=== PATIENT | male | born 1955 | race Caucasian/White ===

== ENCOUNTER 2022-06-05 16:19 | Emergency (ER) | payer MEDICARE ==
[~2022-06-05] VITALS: Ht 165.1 cm; Wt 72.6 kg
[2022-06-05 16:23] VITALS: BP 140/84
--- NOTE | 2022-06-05 16:34 | NUR ---
PT AMB TO BED 5.
[2022-06-05] MEDS ORDERED: MORPHINE SULFATE 4 MG/ML SYR IVP ONE (17:20)
--- NOTE | 2022-06-05 17:27 | NUR ---
67YO MALE PT C/O R ARM PAIN, NUMBING AND SWELLING [id number] . REPORTS INITIAL ONSET AFTER HAVING SHINGLES W/ WORSENING SYMPTOMS SINCE. DENIES RELIEF AFTER RX GABAPETIN GIVEN BY PCP. ARM PRESENTS W/ SWELLING AND TENDER. DENIES N/V/D, CHEST PAIN , FEVER OR CHILLS. PT AAOX4, HOB POSITIONED PER COMFORT. HX: HLD NKA
--- NOTE | 2022-06-05 17:30 | NUR ---
US AT BEDSIDE
[2022-06-05 17:32] LABS: BASOPHILS # (AUTO) 0.1 K/uL (0.00-0.22); BASOPHILS % (AUTO) 1.2 % (0.0-2.0); EOSINOPHILS # (AUTO) 0.3 K/uL (0-0.4); EOSINOPHILS % (AUTO) 5.9 % (0.0-4.0); HEMATOCRIT 38.3 % (36-52); HEMOGLOBIN 13.2 g/dL (12.0-18.0); LYMPHOCYTES # (AUTO) 1.8 K/uL (2.0-11.5); MEAN CORPUSCULAR HEMOGLOBIN 31 pg (27-31); MEAN CORPUSCULAR HGB CONC 34 g/dL (33-37); MEAN CORPUSCULAR VOLUME 90.4 fL (80-94); MONOCYTES # (AUTO) 0.4 K/uL (0.8-1.0); MONOCYTES % (AUTO) 9.3 % (1.7-9.3); NEUTROPHILS # (AUTO) 2.1 K/uL (1.8-7.7); NEUTROPHILS % (AUTO) 44.6 % (42.2-75.2); PLATELET COUNT (AUTO) 228 K/uL (140-450); RED BLOOD CELL COUNT(AUTO) 4.24 MIL/uL (4.20-6.10); RED CELL DISTRIBUTION WIDTH 13.6 % (11.6-13.7); WHITE BLOOD COUNT (AUTO) 4.7 K/uL (4.8-10.8)
[2022-06-05 18:15] LABS: ALBUMIN 3.7 g/dL (3.4-5.0); ANION GAP 12.8 (8-16); CARBON DIOXIDE 25.1 mmol/L (21-32); CREATININE 0.8 mg/dL (0.6-1.3); POTASSIUM 3.9 mmol/L (3.5-5.1); TOTAL BILIRUBIN 0.4 mg/dL (0.0-1.0)
--- NOTE | 2022-06-05 19:20 | NUR ---
PT RC'D IN BED 5, AWAITING FURTHER ORDERS
--- NOTE | 2022-06-05 19:31 | NUR ---
REPORT GIVEN TO LEIGH RN. TRANSFER OF CARE AT THIS TIME.
[2022-06-05] MEDS ORDERED: ACET-8905 PO (22:26)
[2022-06-05 22:56] VITALS: BP 140/84
--- NOTE | 2022-06-05 22:56 | NUR ---
Patient discharged with v/s stable. Written and verbal after care instructions given and explained. Patient alert, oriented and verbalized understanding of instructions. Ambulatory with steady gait. All questions addressed prior to discharge. ID band removed. Patient advised to follow up with PMD. Rx of HYDROCODONE/ACETAMINOPHEN given. Patient educated on indication of medication including possible reaction and side effects. Opportunity to ask questions provided and answered.
== END 2022-06-05 22:56 | disposition home or self-care (01) ==
LOC: MED 16:19
DX: M25.511 Pain in right shoulder (principal); Z79.899 Other long term (current) drug therapy
CPT/HCPCS: 36415; 80053; 85025; 85651; 86140; 93971; 96374; 99285; J2270; Q0092; Q9967